=== PATIENT | female | born 2000 | race African-American/Black ===

== ENCOUNTER 2020-12-08 13:31 | Inpatient (IN) | payer OTHER ==
[~2020-12-08] VITALS: Ht 147.3 cm; Wt 42.8 kg
[2020-12-08] MEDS ORDERED: HALOPERIDOL 5 MG TABLET PO PRN (18:15)
[2020-12-08 20:44] VITALS: BP 107/65
[2020-12-09 06:02] VITALS: BP 104/64
[2020-12-09] MEDS ORDERED: PETROLATUM,WHITE 28 GM JELLY TP PRN (07:30)
[2020-12-09] MEDS ORDERED: ONDANSETRON HCL 4 MG TABLET PO PRN (07:30)
[2020-12-09] MEDS ORDERED: IBUPROFEN 400 MG TABLET PO PRN (07:30)
[2020-12-09] MEDS ORDERED: ACETAMINOPHEN 325 MG TABLET PO PRN (07:30)
[2020-12-09] MEDS ORDERED: MAGNESIUM HYDROXIDE SUSPENSION 30 ML UDCUP PO PRN (07:30)
[2020-12-09] MEDS ORDERED: GuaiFENesin/D-METHORPHAN [SUGAR-FREE] 200-20MG/10 ML SYRUP UDCUP PO PRN (07:30)
[2020-12-09] MEDS ORDERED: ALBUTEROL SULFATE HFA 90 MCG/PUFF 8 GM INHALER IH PRN (07:30)
[2020-12-09] MEDS ORDERED: LOPERAMIDE HCL 2 MG CAPSULE PO PRN (07:30)
[2020-12-09] MEDS ORDERED: DOCUSATE SODIUM 100 MG CAPSULE PO PRN (07:30)
[2020-12-09] MEDS ORDERED: CloNIDine HCL 0.1 MG TABLET PO PRN (07:30)
[2020-12-09] MEDS ORDERED: MAG HYDROX/AL HYDROX/SIMETH ES 30 ML SUSPENSION UDCUP PO PRN (07:30)
[2020-12-09] MEDS ORDERED: NICOTINE 14 MG/24 HOUR PATCH TD PRN (07:30)
[2020-12-09 07:34] LABS: BASOPHILS % (AUTO) 0.6 % (0.0-2.0); EOSINOPHILS % (AUTO) 2.6 % (1.0-6.0); HEMATOCRIT 38.4 % (36-46); HEMOGLOBIN 12.9 g/dL (12.0-16.0); LYMPHOCYTES # (AUTO) 1.8 K/uL (1.0-4.8); LYMPHOCYTES % (AUTO) 41.2 % (22.0-44.0); MEAN CORPUSCULAR HEMOGLOBIN 29.7 pg (26.0-34.0); MEAN CORPUSCULAR HGB CONC 33.6 G/dL (31.0-37.0); MEAN CORPUSCULAR VOLUME 88 fL (80-100); MONOCYTES # (AUTO) 0.5 K/uL (0.1-1.0); MONOCYTES % (AUTO) 12.4 % (2.0-9.0); NEUTROPHILS # (AUTO) 1.9 K/uL (1.8-7.7); NEUTROPHILS % (AUTO) 43.2 % (40.0-70.0); PLATELET COUNT (AUTO) 237 K/uL (150-450); RED BLOOD CELL COUNT(AUTO) 4.35 MIL/uL (4.00-5.20); RED CELL DISTRIBUTION WIDTH 11.7 % (11.5-14.5)
[2020-12-09 07:50] LABS: ALANINE AMINOTRANSFERASE 29 U/L (12-78); ALBUMIN 3.6 g/dL (3.4-5.0); ALKALINE PHOSPHATASE 51 U/L (46-116); ANION GAP 9 mmol/L (8-16); ASPARTATE AMINOTRANSFERASE 16 U/L (15-37); BILIRUBIN,TOTAL 0.5 mg/dL (0.1-1.0); CALCIUM, TOTAL 8.4 mg/dL (8.8-10.5); CARBON DIOXIDE 27 mmol/L (22-29); CHLORIDE 108 mmol/L (98-107); CHOL/HDL RATIO 3.3 (3.9-5.7); CHOLESTEROL 112 mg/dL (131-200); CREATININE 0.79 mg/dL (0.60-1.30); GLOMERULAR FILTR. RATE CALC > 60 mL/min (>60); GLUCOSE,RANDOM 83 mg/dL (70-110); HDL CHOLESTEROL 34 mg/dL (40-60); LDL CHOL (CALC.) 70 mg/dL (0-130); POTASSIUM 3.6 mmol/L (3.5-5.1); SODIUM SERUM 144 mmol/L (136-145); TOTAL PROTEIN, SERUM 6.3 g/dL (6.4-8.2); TRIGLYCERIDES 38 mg/dL (15-150); UREA NITROGEN, BLOOD 7 mg/dL (7-18)
[2020-12-09 08:28] LABS: FREE T4 (FREE THYROXINE) 1.09 ng/dL (0.76-1.46); HCG,QUANTITATIVE < 1 mIU/mL (0-6); THYROID STIMULATING HORMONE 0.44 uIU/mL (0.36-3.74)
[2020-12-09 09:12] VITALS: BP 102/64
[2020-12-09] MEDS: SERTRALINE HCL 50 MG TABLET PO SCH (09:47)
[2020-12-09] MEDS: LORazepam 2 MG TABLET PO PRN (11:58)
[2020-12-09 16:14] VITALS: BP 111/60
[2020-12-09] MEDS: ZOLPIDEM TARTRATE 10 MG TABLET PO PRN (21:31)
[2020-12-10 06:14] VITALS: BP 100/62
[2020-12-10] MEDS: SERTRALINE HCL 50 MG TABLET PO SCH (08:46)
[2020-12-10 09:04] VITALS: BP 101/60
[2020-12-10 16:23] VITALS: BP 100/62
[2020-12-10] MEDS: LORazepam 2 MG TABLET PO PRN (18:02)
[2020-12-10] MEDS: ZOLPIDEM TARTRATE 10 MG TABLET PO PRN (20:49)
[2020-12-11 00:37] VITALS: BP 101/76
[2020-12-11 09:07] VITALS: BP 100/60
[2020-12-11] MEDS: SERTRALINE HCL 50 MG TABLET PO SCH (09:14)
[2020-12-11] MEDS: LORazepam 2 MG TABLET PO PRN (10:51)
[2020-12-11 16:29] VITALS: BP 101/60
[2020-12-12 00:32] VITALS: BP 103/62
[2020-12-12 08:27] VITALS: BP 105/61
[2020-12-12] MEDS: SERTRALINE HCL 50 MG TABLET PO SCH (08:38)
[2020-12-12] MEDS: LORazepam 2 MG TABLET PO PRN (13:05)
[2020-12-12] MEDS ORDERED: SERT-158 PO (13:12)
== END 2020-12-12 14:00 | disposition home or self-care (01) | DRG 885 ==
LOC: B2S 18:09
PROVIDERS: ADMIT Psychiatry & Neurology Child & Adolescent Psychiatry; ATTEND Psychiatry & Neurology Child & Adolescent Psychiatry
DX: F33.2 Major depressive disorder, recurrent severe without psychotic features (principal); E44.0 Moderate protein-calorie malnutrition; E83.51 Hypocalcemia; D72.819 Decreased white blood cell count, unspecified
CPT/HCPCS: 80053; 80061; 84439; 84443; 84702; 85025